=== PATIENT | female | born 1990 | race Caucasian/White ===

== ENCOUNTER 2017-06-03 22:00 | Inpatient (IN) ==
[2017-06-03] MEDS ORDERED: BUTORPHANOL 2 MG/ML VIAL IV PRN (22:42)
[2017-06-03] MEDS ORDERED: ACETAMINOPHEN 325 MG TABLET PO PRN (22:42)
[2017-06-03] MEDS ORDERED: ONDANSETRON 4 MG/2 ML VIAL IV PRN (22:42)
[2017-06-03 23:07] LABS: Basophils % 0.3 % (0.0-0.8); Eosinophils % 0.4 % (0.00-10.9); Hemoglobin 9.9 GM/DL (12.0-16.0); Immature Granulocytes % 0.6 %; Immature Granulocytes Absolute 0.06 #; Lymphocytes # 1.5 10*3/uL (1.4-4.0); Lymphocytes % 15.3 % (21.3-54.2); Mean Corpuscular HGB Conc 31.9 GM/DL (32-36); Mean Corpuscular Hemoglobin 28 PG (27-34); Mean Corpuscular Volume 86.1 FL (87-102); Mean Platelet Volume 10.2 FL (9.6-12.0); Monocytes # 0.8 10*3/uL (0.11-0.8); Monocytes % 7.7 % (1.7-12.7); Neutrophils # 7.5 10*3/uL (1.4-7.4); Neutrophils % 75.7 % (38.7-73.9); Platelet Count 189 T/CUMM (130-400); Red Cell Distribution Width 13.6 % (9.3-17.3); White Blood Count 9.9 T/CUMM (4-12)
[2017-06-03] MEDS: LACTATED RINGERS 1,000 ML IV SCH (23:30)
[2017-06-03 23:38] LABS: Alanine Aminotransferase 19 U/L (13-56); Alkaline Phosphatase 174 U/L (45-117); Aspartate Amino Transferase 14 U/L (0-37); Bilirubin,Total < 0.39 MG/DL (0.2-1.0); Blood Urea Nitrogen 10 MG/DL (7-18); Calcium 8.9 MG/DL (8.5-10.1); Glucose 83 MG/DL (74-106); Osmolality,Calculated 274.5 MOS/KG (273-304); Potassium 4.4 MMOL/L (3.5-5.1); Sodium 139 MMOL/L (136-145); Total Protein 7.1 G/DL (6.4-8.3)
[2017-06-04] MEDS ORDERED: OXYTOCIN/LR 20 UNIT/1,000 ML BAG IV SCH (06:00)
[2017-06-04] MEDS ORDERED: FAMOTIDINE 20 MG/2 ML VIAL IV ONE (07:06)
[2017-06-04] MEDS ORDERED: CITRIC ACID/SODIUM CITRATE 30 ML UDCUP PO ONE (07:06)
[2017-06-04] MEDS ORDERED: fentaNYL 2 MCG/ROPIV 0.2% EPID 150 ML EPIDURAL SCH (07:30)
[2017-06-04] MEDS: LACTATED RINGERS 1,000 ML IV SCH ×2 (07:31→09:10)
[2017-06-04] MEDS: ePHEDrine 50 MG/ML AMP IV PRN ×2 (08:02→08:10)
[2017-06-04] MEDS ORDERED: ePHEDrine 50 MG/ML AMP IV ONE (09:45)
[2017-06-04] MEDS ORDERED: ONDANSETRON 4 MG/2 ML VIAL IV PRN (11:46)
[2017-06-04] MEDS ORDERED: HYDROCORTISONE 2.5% RECTAL CREAM 30 GM TUBE TOP PRN (11:46)
[2017-06-04] MEDS ORDERED: LANOLIN 50% CREAM 0.3 OZ TUBE TOP PRN (11:46)
[2017-06-04] MEDS ORDERED: WITCH HAZEL PADS 100/JAR TOP PRN (11:46)
[2017-06-04] MEDS ORDERED: oxyCODONE/ACETAMINOPHEN 5-325 MG TABLET PO PRN (11:46)
[2017-06-04] MEDS ORDERED: BENZOCAINE 20%/MENTHOL 0.5% SPRAY 56 GM CAN TOP PRN (11:46)
[2017-06-04] MEDS ORDERED: MEASLES/MUMPS/RUBELLA VACCINE 0.5 ML VIAL SUBCUT ONE (11:46)
[2017-06-04] MEDS ORDERED: OXYTOCIN/LR 20 UNIT/1,000 ML BAG IV ONE (11:46)
[2017-06-04] MEDS ORDERED: ACETAMINOPHEN 325 MG TABLET PO PRN (11:46)
[2017-06-04] MEDS ORDERED: BISACODYL 10 MG SUPP RECTAL PRN (11:46)
[2017-06-04] MEDS ORDERED: DIPH/TET/ACEL PERT BOOSTER VACCINE 0.5 ML VIAL IM ONE (11:46)
[2017-06-04] MEDS ORDERED: RHO(D) IMMUNE GLOBULIN 300 MCG SYRINGE IM ONE (11:46)
[2017-06-04] MEDS: DOCUSATE SODIUM 100 MG CAPSULE PO SCH (21:30)
[2017-06-05] MEDS: IBUPROFEN 800 MG TABLET PO PRN ×2 (00:08→10:10)
[2017-06-05] MEDS: oxyCODONE/ACETAMINOPHEN 5-325 MG TABLET PO PRN ×2 (01:12→23:12)
[2017-06-05 05:14] LABS: Basophils % 0.1 % (0.0-0.8); Eosinophils # 0.1 10*3/uL (0.0-0.87); Eosinophils % 0.6 % (0.00-10.9); Hematocrit 24.4 VOL% (35.7-47.0); Hemoglobin 7.9 GM/DL (12.0-16.0); Lymphocytes # 1.7 10*3/uL (1.4-4.0); Lymphocytes % 17.2 % (21.3-54.2); Mean Corpuscular HGB Conc 32.4 GM/DL (32-36); Mean Corpuscular Hemoglobin 28 PG (27-34); Mean Platelet Volume 10.8 FL (9.6-12.0); Monocytes # 0.7 10*3/uL (0.11-0.8); Neutrophils # 7.3 10*3/uL (1.4-7.4); Neutrophils % 74.1 % (38.7-73.9); Platelet Count 149 T/CUMM (130-400); Red Blood Count 2.87 MC/CUMM (3.8-5.5); Red Cell Distribution Width 13.7 % (9.3-17.3); White Blood Count 9.9 T/CUMM (4-12)
[2017-06-05] MEDS: DOCUSATE SODIUM 100 MG CAPSULE PO SCH ×2 (08:18→23:12)
[2017-06-05] MEDS: FERROUS SULFATE 325 MG TABLET PO SCH (23:12)
[2017-06-06] MEDS ORDERED: PROMETHAZINE 25 MG/1 ML VIAL IM PRN (02:08)
[2017-06-06 07:22] VITALS: BP 83/47
[2017-06-06] MEDS: DOCUSATE SODIUM 100 MG CAPSULE PO SCH (08:14)
[2017-06-06] MEDS: FERROUS SULFATE 325 MG TABLET PO SCH (08:14)
== END 2017-06-06 11:50 | disposition home or self-care (01) | DRG 560 ==
LOC: N.LDOUT 22:00 → N.LD 22:02 → N.OB 06-04 14:29
PROVIDERS: ADMIT Specialist; ATTEND Specialist

== ENCOUNTER 2019-12-01 05:06 | Inpatient (IN) ==
[2019-12-01] MEDS ORDERED: MEPERIDINE 50 MG/1 ML VIAL IV PRN (05:17)
[2019-12-01] MEDS ORDERED: LACTATED RINGERS 1,000 ML IV PRN (05:17)
[2019-12-01] MEDS ORDERED: BUTORPHANOL 2 MG/ML VIAL IV PRN (05:17)
[2019-12-01] MEDS ORDERED: ONDANSETRON 4 MG/2 ML VIAL IV PRN ×2 (05:17→18:08)
[2019-12-01] MEDS ORDERED: OXYTOCIN/LR 20 UNIT/1,000 ML BAG IV SCH (05:30)
[2019-12-01 05:46] LABS: Basophils % 0.5 % (0.0-0.8); Eosinophils # 0.1 10*3/uL (0.0-0.87); Eosinophils % 1.4 % (0.00-10.9); Hematocrit 32.9 VOL% (35.7-47.0); Hemoglobin 10.3 GM/DL (12.0-16.0); Immature Granulocytes % 0.5 %; Immature Granulocytes Absolute 0.04 #; Lymphocytes # 2.1 10*3/uL (1.4-4.0); Lymphocytes % 26.2 % (21.3-54.2); Mean Corpuscular HGB Conc 31.3 GM/DL (32-36); Mean Corpuscular Volume 85.5 FL (87-102); Mean Platelet Volume 10.3 FL (9.6-12.0); Monocytes % 6.6 % (1.7-12.7); Neutrophils % 64.8 % (38.7-73.9); Platelet Count 165 T/CUMM (130-400); Red Blood Count 3.85 MC/CUMM (3.8-5.5); Red Cell Distribution Width 14.2 % (9.3-17.3); White Blood Count 7.9 T/CUMM (4-12)
[2019-12-01 06:11] LABS: Alanine Aminotransferase 14 U/L (13-56); Albumin 2.9 G/DL (3.4-5.0); Alkaline Phosphatase 156 U/L (45-117); Aspartate Amino Transferase 11 U/L (0-37); Bilirubin,Total < 0.39 MG/DL (0.2-1.0); Blood Urea Nitrogen 5 MG/DL (7-18); Calcium 8.5 MG/DL (8.5-10.1); Estimated Glom Filtration Rate 126 ML/MIN; Glucose 82 MG/DL (74-106); Osmolality,Calculated 268.8 MOS/KG (273-304); Total Protein 7.4 G/DL (6.4-8.3)
[2019-12-01] MEDS ORDERED: CITRIC ACID/SODIUM CITRATE 30 ML UDCUP PO ONE (09:43)
[2019-12-01] MEDS ORDERED: PROMETHAZINE 25 MG/1 ML VIAL IM ONE (09:43)
[2019-12-01] MEDS ORDERED: ONDANSETRON 4 MG/2 ML VIAL IV ONE (09:43)
[2019-12-01] MEDS ORDERED: FAMOTIDINE 20 MG/2 ML VIAL IV ONE (09:43)
[2019-12-01] MEDS ORDERED: NALOXONE 0.4 MG/ML VIAL IV PRN (09:43)
[2019-12-01] MEDS ORDERED: hydrOXYzine HCL 25 MG/1 ML VIAL IM PRN (09:43)
[2019-12-01] MEDS ORDERED: LACTATED RINGERS 1,000 ML IV ONE (09:43)
[2019-12-01] MEDS ORDERED: diphenhydrAMINE 50 MG/1 ML VIAL IV PRN ×2 (09:43)
[2019-12-01] MEDS ORDERED: fentaNYL 2 MCG/ROPIV 0.2% EPID 100 ML EPIDURAL SCH (10:00)
[2019-12-01] MEDS: ePHEDrine 50 MG/ML VIAL IV PRN ×2 (11:08→11:13)
[2019-12-01 12:30] LABS: Apearance,Urine CLEAR (Clear); Bilirubin,Urine Negative (Negative); Blood, Urine Negative (Negative); Glucose,Urine (UA) Negative (Negative); Ketones,Urine Negative (Negative); Mucus,Urine Occasional /LPF (Occasional); Nitrite,Urine Negative (Negative); Protein,Urine Negative; RBC,Urine <1 /HPF (0-4); Urine Color Straw (Yellow); Urine Specific Gravity 1.006 (1.001-1.035); Urine Urobilinogen < 2.0 EU/DL (0.2-1.0); WBC,Urine <1 /HPF (0-6)
[2019-12-01] MEDS ORDERED: miSOPROStoL 200 MCG TABLET ONE (14:28)
[2019-12-01] MEDS ORDERED: METHYLERGONOVINE 0.2 MG/1 ML AMP ONE (14:28)
[2019-12-01] MEDS ORDERED: TRANEXAMIC ACID 1,000 MG/10 ML VIAL ONE (14:28)
[2019-12-01] MEDS ORDERED: LIDOCAINE 1% 50 ML VIAL ONE (14:29)
[2019-12-01] MEDS ORDERED: CARBOPROST TROMETHAMINE 250 MCG/ML AMP IM ONE (14:29)
[2019-12-01 15:22] LABS: Cord Venous Blood HCO3 20.2 MMOL/L; Cord Venous Blood PCO2 40.7 MMHG; Cord Venous Blood PO2 23.8
[2019-12-01] MEDS ORDERED: ACETAMINOPHEN 325 MG TABLET PO PRN (18:08)
[2019-12-01] MEDS ORDERED: BENZOCAINE 20%/MENTHOL 0.5% SPRAY 56 GM CAN TOP PRN (18:08)
[2019-12-01] MEDS ORDERED: oxyCODONE/ACETAMINOPHEN 5-325 MG TABLET PO PRN ×2 (18:08)
[2019-12-01] MEDS ORDERED: RHO(D) IMMUNE GLOBULIN 300 MCG SYRINGE IM ONE (18:08)
[2019-12-01] MEDS ORDERED: MEASLES/MUMPS/RUBELLA VACCINE 0.5 ML VIAL SUBCUT ONE (18:08)
[2019-12-01] MEDS ORDERED: BISACODYL 10 MG SUPP RECTAL PRN (18:08)
[2019-12-01] MEDS ORDERED: LANOLIN 50% CREAM 0.3 OZ TUBE TOP PRN (18:08)
[2019-12-01] MEDS ORDERED: DIPH/TET/ACEL PERT BOOSTER VACCINE 0.5 ML VIAL IM ONE (18:08)
[2019-12-01] MEDS ORDERED: OXYTOCIN/LR 20 UNIT/1,000 ML BAG IV ONE (18:08)
[2019-12-01] MEDS ORDERED: HYDROCORTISONE 2.5% RECTAL CREAM 30 GM TUBE TOP PRN (18:08)
[2019-12-01] MEDS ORDERED: WITCH HAZEL PADS 100/JAR TOP PRN (18:08)
[2019-12-01] MEDS: DOCUSATE SODIUM 100 MG CAPSULE PO SCH (20:47)
[2019-12-02 05:43] LABS: Basophils % 0.4 % (0.0-0.8); Eosinophils # 0.1 10*3/uL (0.0-0.87); Eosinophils % 1.1 % (0.00-10.9); Hematocrit 31.7 VOL% (35.7-47.0); Hemoglobin 9.8 GM/DL (12.0-16.0); Immature Granulocytes % 0.6 %; Immature Granulocytes Absolute 0.06 #; Lymphocytes # 2.1 10*3/uL (1.4-4.0); Lymphocytes % 19.5 % (21.3-54.2); Mean Corpuscular HGB Conc 30.9 GM/DL (32-36); Mean Corpuscular Volume 86.4 FL (87-102); Mean Platelet Volume 11.2 FL (9.6-12.0); Monocytes % 7.4 % (1.7-12.7); Platelet Count 135 T/CUMM (130-400); Red Blood Count 3.67 MC/CUMM (3.8-5.5); Red Cell Distribution Width 14.3 % (9.3-17.3); White Blood Count 10.5 T/CUMM (4-12)
[2019-12-02] MEDS: DOCUSATE SODIUM 100 MG CAPSULE PO SCH ×3 (09:50→21:04)
[2019-12-02] MEDS: IBUPROFEN 800 MG TABLET PO PRN ×2 (09:50→19:33)
[2019-12-03] MEDS: DOCUSATE SODIUM 100 MG CAPSULE PO SCH (09:29)
[2019-12-03 10:46] VITALS: BP 94/58
== END 2019-12-03 11:25 | disposition home or self-care (01) | DRG 560 ==
LOC: N.LD 05:06 → N.OB 18:20
PROVIDERS: ADMIT Specialist; ATTEND Specialist